=== PATIENT | female | born 1955 | race Hispanic/Latino ===

== ENCOUNTER 2019-03-30 15:21 | Outpatient (CLI) | payer OTHER ==
--- NOTE | 2019-03-30 16:16 | BD ---
Exam: DEXA Bone Density 03/30/19 INDICATIONS: Postmenopausal osteoporosis screening. Lumbar Spine: BMD (g/cm2) T-SCORE L1 0.780 -1.9 L2 0.920 -1.0 L3 0.808 -2.5 L4 0.837 -2.0 L1-L4 0.839 -1.9 Femoral Neck: 0.736 -1.0 Total Femur: 0.911 -0.3 Impression: 1. Bone mineral density of the lumbar spine indicates osteopenia. 2. Bone mineral density of the femoral neck within normal range. Ten year fracture risk: Major osteoporotic fracture: 7.8%. Hip fracture: 0.5%. POS: [facility]
== END 2019-03-30 15:22 | disposition home or self-care (01) ==
LOC: BICMAMMO 15:21
PROVIDERS: ATTEND Family Medicine
DX: Z13.820 Encounter for screening for osteoporosis (principal); M85.88 Other specified disorders of bone density and structure, other site
CPT/HCPCS: 77080